=== PATIENT | female | born 1980 | race Asian ===

== ENCOUNTER 2018-02-08 11:18 | Emergency (ER) | payer OTHER ==
[~2018-02-08] VITALS: Ht 160 cm; Wt 95.3 kg
[2018-02-08 11:31] VITALS: BP_SYST 133
[2018-02-08 15:35] VITALS: BP_SYST 130
== END 2018-02-08 15:35 | disposition home or self-care (01) ==
LOC: SED 11:18
DX: M79.672 Pain in left foot (principal); R03.0 Elevated blood-pressure reading, without diagnosis of hypertension; W10.9XXA Fall (on) (from) unspecified stairs and steps, initial encounter; Y93.89 Activity, other specified; Y92.89 Other specified places as the place of occurrence of the external cause; Y99.8 Other external cause status
CPT/HCPCS: 99284